=== PATIENT | male | born 1985 | race Caucasian/White ===

== ENCOUNTER 2017-05-23 19:28 | Emergency (ER) | payer OTHER ==
--- NOTE | 2017-05-23 20:11 | ED Physician Documentation ---
PD HPI HEENT - Stated complaint Stated Complaint: GINGERUNGE INJ - Chief complaint Chief Complaint: General - History obtained from History obtained from: Patient - History of Present Illness Timing - onset: Enter time (18:30), Today Timing - details: Abrupt onset Pain level now: 4 Location: Other (tongue) Recently seen: Not recently seen - Additional information Additional information: while eating dinner tonight at approximately 6:30 PM, bit his tongue, c/o tongue laceration Review of Systems Throat: reports: Other (tongue laceration) PD PAST MEDICAL HISTORY - Past Medical History Past Medical History: No Cardiovascular: None Respiratory: None Endocrine/Autoimmune: None GI: None : None HEENT: None Psych: None Musculoskeletal: None Derm: None - Past Surgical History Past Surgical History: Yes General: Other - Present Medications Home Medications: Ambulatory Orders Medication Instructions Recorded Confirmed Penicillin V Potassium 500 mg PO TID #14 tablet 05/23/17 - Allergies Allergies/Adverse Reactions: Allergies Allergy/AdvReac Type Severity Reaction Status Date / Time No Known Drug Allergies Allergy Verified 05/23/17 19:34 - Social History Does the pt smoke?: No Smoking Status: Never smoker Does the pt drink ETOH?: No Does the pt have substance abuse?: No - Immunizations Immunizations are current?: Yes - POLST Patient has POLST: No PD ED PE NORMAL - Vitals Vital signs reviewed: Yes - General General: Alert and oriented X 3, No acute distress, Well developed/nourished PD ED PE EXPANDED - HEENT HEENT Visual: 1 - laceration Results - Vitals Vitals: Vital Signs - 24 hr 05/23/17 05/23/17 19:31 21:59 Temperature 36.9 C 36.8 C Heart Rate 72 86 Respiratory 16 18 Rate Blood Pressure 140/91 H 146/96 H O2 Saturation 99 100 Oxygen O2 Source Room air Procedures - Laceration (location) Other Length in cm: 1.5 Wound type: Linear Neurovascular status: Sensory intact, Motor intact, Vascular intact Anesthesia: Lidocaine 1% Skin layer closure: Interrupted, Size #-0 - enter number (4-0), Other (vicryl) Other: Patient tolerated well, No complications, Neurovascular intact Complexity: Simple PD MEDICAL DECISION MAKING - ED course Complexity details: considered differential, d/w patient Departure - Departure Disposition: 01 Home, Self Care Clinical Impression: Tongue laceration Condition: Good Instructions: ED Laceration Mouth Prescriptions: Penicillin V Potassium 500 mg PO TID #14 tablet Comments: Although the stitches are dissolvable, you should have the laceration reevaluated in one week. At that time, the examining health care provider might elect to remove the sutures if they are still in place. Discharge Date/Time: 05/23/17 21:59
[2017-05-23] MEDS ORDERED: LIDOCAINE 1% 2 ML VIAL ONE (20:27)
[2017-05-23] MEDS ORDERED: PENICILLIN VK 250 MG TABLET PO STA (21:44)
[2017-05-23] MEDS ORDERED: PENICILLIN VK 250 MG TABLET PO ONE (21:54)
[2017-05-23 22:03] VITALS: BP 146/96
== END 2017-05-23 21:59 | disposition home or self-care (01) ==
LOC: ED 19:28
DX: S01.512A Laceration without foreign body of oral cavity, initial encounter (principal); X58.XXXA Exposure to other specified factors, initial encounter
CPT/HCPCS: 12011; 99283; A9270

== ENCOUNTER 2017-10-21 17:26 | Emergency (ER) | payer OTHER ==
--- NOTE | 2017-10-21 20:18 | ED Physician Documentation ---
PD HPI LOWER EXT INJURY - Stated complaint Stated Complaint: L GREAT TOE INJ - Chief complaint Chief Complaint: Ext Problem - History obtained from History obtained from: Patient - History of Present Illness PD HPI LOW EXT INJURY LOCATION: Left, Toe (base of great toe) Type of injury: No: Fall, Twist, Blunt / blow Timing - onset: How many weeks ago (1) Timing - duration: Weeks (1) Timing - details: Gradual onset, Still present Improved by: Rest Worsened by: Moving, Palpating, Other (walking) Associated symptoms: Swelling. No: Weakness, Numbness Similar symptoms before: Has not had sx before Recently seen: Not recently seen Review of Systems Constitutional: denies: Fever, Chills Cardiac: denies: Chest pain / pressure, Palpitations Respiratory: denies: Dyspnea, Cough GI: denies: Abdominal Pain Skin: denies: Rash, Lesions Neurologic: denies: Focal weakness, Numbness PD PAST MEDICAL HISTORY - Past Medical History Past Medical History: No Cardiovascular: None Respiratory: None Endocrine/Autoimmune: None GI: None : None HEENT: None Psych: None Musculoskeletal: None Derm: None - Past Surgical History Past Surgical History: Yes General: Other HEENT: Myringotomy (tubes) - Present Medications Home Medications: Ambulatory Orders Medication Instructions Recorded Confirmed Penicillin V Potassium 500 mg PO TID #14 tablet 05/23/17 Dexamethasone [Decadron] 4 mg PO DAILY #5 tablet 10/21/17 Tramadol HCl 50 mg PO Q6H PRN #20 tablet 10/21/17 - Allergies Allergies/Adverse Reactions: Allergies Allergy/AdvReac Type Severity Reaction Status Date / Time No Known Drug Allergies Allergy Verified 05/23/17 19:34 - Social History Does the pt smoke?: No Smoking Status: Never smoker Does the pt drink ETOH?: Yes ETOH Use: Liquor Does the pt have substance abuse?: No - Immunizations Immunizations are current?: Yes - POLST Patient has POLST: No PD ED PE NORMAL - Vitals Vital signs reviewed: Yes - General General: Alert and oriented X 3, No acute distress, Well developed/nourished - Cardiac Cardiac: RRR, No murmur - Respiratory Respiratory: Clear bilaterally - Abdomen Abdomen: Soft, Non tender Results - Vitals Vitals: Oxygen O2 Source Room air - Rads (name of study) left toe xray Radiology: Prelim report reviewed, EMP read contemporaneously (no acute process) PD MEDICAL DECISION MAKING - ED course Complexity details: reviewed results, considered differential (no obvious injury to the area. some redness with mild warmth. No focal lesions. local swelling. no obvious sores nor rash. ), d/w patient Departure - Departure Disposition: 01 Home, Self Care Clinical Impression: Pain of left great toe Toe sprain Qualifiers: Encounter type: initial encounter Qualified Code(s): S93.509A - Unspecified sprain of unspecified toe(s), initial encounter Gout Qualifiers: Gout site: toe Gout etiology: unspecified cause Chronicity: acute Laterality: left Qualified Code(s): M10.9 - Gout, unspecified Condition: Stable Record reviewed to determine appropriate education?: Yes Instructions: ED Arthritis Gout, ED Sprain Toe Follow-Up: RICHAR MEHTA MD [Primary Care Provider] - Prescriptions: Dexamethasone [Decadron] 4 mg PO DAILY #5 tablet Tramadol HCl 50 mg PO Q6H PRN #20 tablet PRN Reason: Pain Discharge Date/Time: 10/21/17 21:43
[2017-10-21] MEDS ORDERED: HYDROcod/ACET 5/325 Prepack 6 PO STA (20:30)
[2017-10-21] MEDS ORDERED: ACETAMINOPHEN 325 MG TABLET PO STA (20:30)
[2017-10-21] MEDS ORDERED: DEXAMETHASONE 10 MG/ML VIAL PO STA (20:30)
[2017-10-21 20:43] VITALS: BP 155/87
--- NOTE | 2017-10-21 21:15 | XRAY Preliminary Report ---
Exam: XR TOE(S) LT IMPRESSION: Normal toe radiography. [facility] SITE ID: [id number]
--- NOTE | 2017-10-21 21:16 | XRAY Report ---
EXAM: LEFT TOE RADIOGRAPHY EXAM DATE: 10/21/2017 08:52 PM. CLINICAL HISTORY: Great toe pain after uneven ground running/twist. COMPARISON: None. TECHNIQUE: 3 views. FINDINGS: Bones: Normal. No fracture or bone lesion. Joints: Normal. No subluxations. Soft Tissues: Normal. No soft tissue swelling. IMPRESSION: Normal toe radiography. [facility] Referring Provider Line: [phone] SITE ID: [id number]
== END 2017-10-21 21:43 | disposition home or self-care (01) ==
LOC: ED 17:26
DX: S93.502A Unspecified sprain of left great toe, initial encounter (principal); X58.XXXA Exposure to other specified factors, initial encounter; M10.9 Gout, unspecified
CPT/HCPCS: 73660; 99283; A9270

== ENCOUNTER 2018-09-21 17:35 | Emergency (ER) | payer OTHER ==
[2018-09-21 17:40] VITALS: BP 145/96
--- NOTE | 2018-09-21 17:44 | ED Physician Documentation ---
PD HPI URI - Stated complaint Stated Complaint: SORE THROAT - Chief complaint Chief Complaint: Heent - History obtained from History obtained from: Patient - History of Present Illness Timing - onset: How many days ago (2) Timing duration: Days (2) Timing details: Gradual onset, Still present Associated symptoms: Fever, Sore throat, Swollen nodes. 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 denies: Dental pain / toothache, Oral lesions / sores Respiratory: denies: Cough GI: denies: Nausea, Vomiting, Diarrhea Skin: denies: Rash PD PAST MEDICAL HISTORY - Past Medical History Cardiovascular: None Respiratory: None Endocrine/Autoimmune: None GI: None : None HEENT: None Psych: None Musculoskeletal: None Derm: None - Past Surgical History Past Surgical History: Yes General: Other HEENT: Myringotomy (tubes) - Present Medications Home Medications: Ambulatory Orders Medication Instructions Recorded Confirmed Cephalexin [Keflex] 500 mg PO Q6H #28 capsule 09/21/18 Dexamethasone [Decadron] 4 mg PO DAILY #5 tablet 09/21/18 Lidocaine Viscous 2% [Xylocaine 5 ml PO Q4H PRN #100 ml 09/21/18 Viscous 2%] Tramadol HCl 50 mg PO Q6H PRN #15 tablet 09/21/18 - Allergies Allergies/Adverse Reactions: Allergies Allergy/AdvReac Type Severity Reaction Status Date / Time No Known Drug Allergies Allergy Verified 09/21/18 17:40 - Social History Does the pt smoke?: No Smoking Status: Never smoker Does the pt drink ETOH?: Yes Does the pt have substance abuse?: No - Immunizations Immunizations are current?: Yes - POLST Patient has POLST: No PD ED PE NORMAL - Vitals Vital signs reviewed: Yes - General General: Alert and oriented X 3, Well developed/nourished - HEENT HEENT: No: Pharynx benign (The tonsils bilaterally appear red with some swelling. There is some exudate on both but more on the left. There is no peritonsillar edema nor abscess noted. Anterior adenopathy is noted at the neck. The lungs are clear.) - Neck Neck: Supple, no meningeal sign - Cardiac Cardiac: RRR, No murmur - Respiratory Respiratory: Clear bilaterally - Derm Derm: Normal color, Warm and dry, No rash Results - Vitals Vitals: Vital Signs - 24 hr 09/21/18 17:38 Temperature 36.5 C Heart Rate 94 Respiratory 20 Rate Blood Pressure 145/96 H O2 Saturation 100 Oxygen O2 Source Room air - Labs Labs: Laboratory Tests 09/21/18 17:40 Group A Strep Rapid POSITIVE H PD MEDICAL DECISION MAKING - ED course Complexity details: reviewed results, considered differential (Clinically sounds like strep. Rapid test confirms this and we will treated as such. Interestingly said his daughter currently has had cold symptoms with congestion and cough but no sore throat. She was seen earlier in the day without any strep appearance. His has a cough and bronchitis type symptoms. Presume this is more from contacts at work and he says some of them have had respiratory stuff and sore throat.), d/w patient Departure - Departure Disposition: 01 Home, Self Care Clinical Impression: Acute streptococcal pharyngitis Condition: Stable Record reviewed to determine appropriate education?: Yes Instructions: ED Strep Pharyngitis Conf Follow-Up: RICHAR MEHTA MD [Primary Care Provider] - Prescriptions: Cephalexin [Keflex] 500 mg PO Q6H #28 capsule Dexamethasone [Decadron] 4 mg PO DAILY #5 tablet Lidocaine Viscous 2% [Xylocaine Viscous 2%] 5 ml PO Q4H PRN #100 ml PRN Reason: Pain Tramadol HCl 50 mg PO Q6H PRN #15 tablet PRN Reason: Pain Comments: Your rapid strep test is positive which makes life easier. It is strep and should be able to be improved more readily. Cephalexin antibiotic as directed and you would be considered noninfectious after 24 hours of antibiotics. You can use Decadron daily for several days to reduce inflammation as well and that will help with the pain a little bit better. Ibuprofen or naproxen as needed for pains. You can use lidocaine numbing medicine orally mixed with some antacid or such. If still hurting you can use tramadol pain medication. Off work for a day or so. Follow-up with your primary care in 2-3 days to see if you are well enough to return to duty. Forms: Activity restrictions
[2018-09-21] MEDS: DEXAMETHASONE 10 MG/ML VIAL PO STA (18:20)
[2018-09-21] MEDS: cephALEXin 250 MG CAPSULE PO STA (18:21)
[2018-09-21] MEDS: LIDOCAINE VISCOUS 2% 15 ML UDC MM STA (18:21)
[2018-09-21] MEDS: IBUPROFEN 600 MG TABLET PO STA (18:21)
[2018-09-21] MEDS: MAG HYDROX/AL HYDROX/SIMETH 30 ML UDC PO STA (18:21)
== END 2018-09-21 19:07 | disposition home or self-care (01) ==
LOC: ED 17:35
DX: J02.0 Streptococcal pharyngitis (principal)
CPT/HCPCS: 87430; 99283; A9270